=== PATIENT | male | born 1970 | race Caucasian/White ===

== ENCOUNTER → 2019-01-21 | Outpatient (CLI) | payer MEDICAID, SELFPAY ==
--- NOTE | 2019-01-21 13:50 | FLU_PTH ---
PATIENT: MARIYA DONNELLY LOC: [facility] U#:[id number] AGE/SX: 48/M ROOM: RE01/21/[address]: Dr. Michael Camargo MD : 1970 BED: DIS: 01/21/2019 SPEC #: [id number] RECD: 01/21/19 15:13 STATUS: EDY BATOOL #: [id number] DONELL: 01/21/19 13:[address]: Michael Camargo DEPT: CYTOLOGY RECD BY: Oscar Moreira Tissues: Parotid gland, NOS Procedures: Special Stain Group II Surgery Specimen Level IV Cytospin Fluid HEADER OPERATION: Left parotid cyst, fine needle aspiration PRE-OP DIAGNOSIS: Rapid growth parotid cyst TISSUE SUBMITTED: Left parotid cyst DIAGNOSIS CYTOLOGY Left parotid cyst, fine needle aspiration (cytospin and cell block): Acute inflammation. Squamoid cells with mild atypia. See comment. AM:olamide 01/23/19 COMMENT Atypical squamoid cells are present admixed with abundant acute inflammatory cells. The atypia may be reactive; however, a neoplastic process cannot be entirely excluded. Clinical correlation is suggested. Case has been reviewed in consultation with Dr. Orlando who concurs with the above diagnosis. IDC:SJ CYTOLOGY STUDY Slides are reviewed. CYTOLOGY GROSS Received is 40 ml of cloudy pink fluid labeled with the patient's name and and designated per the requisition as left parotid cyst. Submitted for cytology preparation including cell block. 01/22/19 TC:? CPT: 98167, 00123
== END | disposition home or self-care (01) ==
LOC: LABSPEC 15:44
PROVIDERS: Referring Provider Otolaryngology; Visit Provider Otolaryngology
DX: K11.6 Mucocele of salivary gland (principal)
CPT/HCPCS: 88108; 88305; 88313

== ENCOUNTER 2019-02-21 11:52 | Day surgery (SDC) | payer MEDICAID, SELFPAY ==
[2019-02-21] VITALS (7 sets, daily range): BP systolic 123–158; BP diastolic 88–96; PULSE 65–79; RESP 16–18; TEMP 35.8–36.6; O2SAT 92–100; BMI 30.5
[2019-02-21 12:39] LABS: Anion Gap 6 (5-15); BUN 22 mg/dL (7-18); BUN/Creat Ratio 22.2 RATIO (10-20); Calcium,Total 8.7 mg/dL (8.5-10.1); Chloride 114 mmol/L (98-107); Creatinine, Serum 0.99 mg/dL (0.70-1.30); EST Glomerular Filtration Rate 86 mL/min (>60); Est Glom Filt Rate - Afr Amer 104 mL/min (>60); Glucose 97 mg/dL (74-106); Potassium 4.1 mmol/L (3.5-5.1); Sodium Level 143 mmol/L (136-145)
--- NOTE | 2019-02-21 13:30 | PAR_PTH ---
PATIENT: MARIYA DONNELLY LOC: [facility] U#:[id number] AGE/SX: 48/M ROOM: RE02/21/[address]: Dr. Michael Camargo MD : 1970 BED: DIS: 02/21/2019 SPEC #: [id number] RECD: 02/21/19 15:26 STATUS: EDY RESalud #: [id number] DONELL: 02/21/19 13:[address]: Michael Camargo DEPT: SURGICAL PATHOLOGY RECD BY: Candice Villegas ENTERED: 02/24/19 07:35 SP TYPE: PAROTID OTHR DR: No Primary Care Phys Tissues: Parotid gland, NOS Procedures: Frozen Section (charge) Surgery Specimen Level V HEADER OPERATION: Parotidectomy PRE-OP DIAGNOSIS: Benign neoplasm major salivary gland left TISSUE SUBMITTED: Mass of left parotid sent for frozen at 1520 FROZEN SECTION DIAGNOSIS Mass of left parotid, excision: Benign epithelial cyst. AM:olamide 02/21/19 Case has been reviewed in consultation with Dr. Orlando who concurs with the above diagnosis. IDC:RAYMUNDO MICROSCOPIC DIAGNOSIS Mass of left parotid, parotidectomy: Benign epithelial cyst with adjacent chronic inflammation and reactive changes. Negative for malignancy. See comment. RAYMUNDO:olamide 02/24/19 COMMENT The surrounding parotid gland tissue appears unremarkable. Please make reference to previous specimen ([id number]) left parotid cyst, FNA with diagnosis of acute inflammation and squamoid cells with mild atypia. MICROSCOPIC DESCRIPTION Slides are reviewed. GROSS DESCRIPTION Received fresh for frozen section diagnosis labeled with the patient's name is a specimen designated mass of left parotid. The specimen consists of a round piece of jenkins-pink tissue containing soft to cystic tissue measuring 2.4 x 2.5 x 1 cm and weighing 3.2 cm. Serial sections reveal a cyst filled with bloody fluid measuring 1 cm in greatest dimension. Two sections from the cyst with surrounding tissue is submitted for frozen section diagnosis. The entire specimen is submitted in three cassettes as follows: 1?- frozen section, 2 & 3 - rest of the specimen. / SJ:olamide 02/21/19 TC:5 CPT: 80543, 72574
[2019-02-21] MEDS: Bacitracin 500 UNITS/GM PACKET (15:22)
--- NOTE | 2019-02-21 15:55 | PCM.OPRPT ---
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 Fine-needle aspiration biopsy showed a lymphoepithelial type lesion. Given this nonspecific finding and the enlarging size of the mass excision for definitive identification evaluation was offered and the patient was eager to proceed. The risks, alternatives, potential complications, and benefits were discussed at length and any questions answered to the patient and/or caregiver's satisfaction. Witnessed informed consent was obtained in the office, and the patient and/or caregiver was agreeable to proceed. Procedure went as follows: The patient was identified in the preoperative holding and the left parotid lesion site marked in accordance with the patient's physical skin exam, office notes, and consent. The patient was then brought to the operating room, placed under general anesthesia and intubated. When appropriate anesthesia was obtained, the facial nerve monitoring electrodes were then placed in accordance with the manufacture's directions over the left side of the face and confirmed to be operational. The planned incision was then marked with a marking pen and injected with 1% lidocaine with 100,000 epinephrine for a total of 7 mL. After allowing for vasoconstriction, a neck incision 2 fingerbreadths below the angle of the mandible was then made using a 15 blade scalpel through the skin and subcutaneous tissues. The subcutaneous tissue was then dissected and the greater auricular nerve identified with the branches along the posterior aspect of the incisional flap preserved. Dissection was then carried down along the sternocleidomastoid freeing the parotid attachments to this muscle. Given the very inferior position of the cystic mass the inferior branch of the facial nerve was identified peripherally and followed medially dissecting free from the surrounding mass and sacrificing a cuff of normal-appearing parotid tissue. This was then sent for surgical specimen. Operative stimulation of the facial nerve branches confirmed preservation of function. The wound bed was then copiously irrigated with saline solution. The wound was then closed deeply with interrupted 3-0 Vicryl sutures followed by a running 5-0 Monocryl to the skin. The patient was then returned to anesthesia, was revived, and extubated without complication having tolerated the procedure well. Type of Anesthesia:: General Anesthesiologist: Axel Costa Special Medications: none Specimen's removed: Left parotid mass Drains: none Estimated Blood Loss (mL): 25 mL Fluids Replaced: 1000 mL Grafts/Implants Used: none - Complications none - Admit VTE Documentation VTE Present on Admission: No VTE Mechan Device Prophylaxis: SCD's VTE Pharm Prophylaxis ordered?: No
--- NOTE | 2019-02-21 16:02 | PCM.DC ---
- Discharge Diagnoses Current Active Problems: Current Active and Chronic Problems Benign neoplasm of parotid gland (Chronic) You will use the following diet at home:: Regular Discharge Activity: Return to Normal Activity Call your doctor if your incision/area has: Increased Pain/ Swelling, Increased Redness, Swelling at the incision site Call your doctor if you observe: Fever of 101 or Higher, Uncontrolled pain Allergies/Adverse Reactions: Allergies No Known Allergies Allergy (Verified 02/14/19 10:52) Medications to take at Discharge Aspirin [Aspirin EC] 81 mg PO DAILY 02/14/19 Glucosam/MSM/Chondroit/Vit D3 [Sv Glucosamine Chondroitin Tab] 1 ea PO DAILY 02/14/19 Multivitamin [Daily Multiple Vitamin] 1 ea PO DAILY 02/14/19 [place]-3 Fatty Acids [Fish Oil] 500 mg PO DAILY 02/14/19 Red Yeast Rice 600 mg PO DAILY 02/14/19 Primary Care Physician: Care Physician,No Primary [Primary Care Provider] - Test Results: Test results from this visit will be discussed in further detail at your follow-up appointment, if applicable. Please Follow Up With: Michael Camargo MD When: 2 weeks
== END 2019-02-21 17:25 | disposition home or self-care (01) ==
LOC: SDC 11:54 → AC 11:57
PROVIDERS: Referring Provider Otolaryngology; Visit Provider Otolaryngology
PROC: (CPT 42410; principal; 2019-02-21 13:00)
DX: D11.0 Benign neoplasm of parotid gland (principal); F17.200 Nicotine dependence, unspecified, uncomplicated
CPT/HCPCS: 00100; 42415; 36415; 80048; 88307; 88331; J7120; J2405